=== PATIENT | female | born 1955 | race African-American/Black ===

== ENCOUNTER → 2016-12-18 | Outpatient (CLI) | payer MEDICARE, OTHER ==
[~2016-12-18] MED LIST: ACETAMINOPHEN PO; ALLERGY SHOTS; AZITHROMYC200 MG/5 M PO; BACTRIM DS TABL1 TA1 PO; BICARSIM FORTE125 MG PO; CITRACAL PLUS T1 TAB PO; CLARINEX5 MG PO; CORRECTOL5 MG PO; DESITIN DIAPER113 GM TOP; DULCOLAX10 MG/SUPP RC; E.E.S. 200200 MG/5 M PO; FLONASE 0.05% N16 G1; LACTULOSE10 G/15 ML PO; LOPID600 MG PO; LUBRIFRESH PM OP; MIRALAX255 GM PO; MYLANTA PO; MYTAB PO; NEXIUM PO; PRILOSEC PO; PROTONIX PO; SELSUN BLUE 1%118 ML TP; SENNA8.8 MG/5 M PO; SENNA8.8 MG/51 PO; SIMETHICONE PO; SINGULAIR PO; SODIUM BICARBO650 MG PO; TEARS AGAIN; VITAMIN D1000 UNI1 PO; ZYRTEC PO; [UNRECOGNIZED DRUG - OTHER] PO
== END | disposition home or self-care (01) ==
LOC: CRAD 09:59
DX: J69.8 Pneumonitis due to inhalation of other solids and liquids (principal)
CPT/HCPCS: 74230; 92611; G8996-GN; G8997-GN; G8998-GN

== ENCOUNTER 2016-12-25 10:16 | Emergency (ER) | payer MEDICARE, OTHER ==
--- NOTE | ~2016-12-25 | CT71 ---
[facility] A Service of [facility] RADIOLOGY TEXT RESULTS PATIENT: AMELIA RAMOS LOCATION: [facility] : 53 UNIT #: [id number] AGE: [address]: Gavin Childress MD SEX: F ORDER DR: [id number] [facility] [address] [facility] [place], [place] [address] [id number] E MR#: [id number] Acc #: [id number] NAME: AMELIA RAMOS : 1955 SEX: F STUDY DATE/TIME: 12/25/2016 11:32 UNIT: [facility] ROOM: STUDY DESCRIPTION: CT Head Wo Contrast Attending Physician: Gavin Childress M.D. Ordering Physician: Gavin Childress M.D. Primary Care Physician: Martin Lagos Sr., M.D. MEDICAL IMAGING REPORT This report is preliminary unless electronic signature is present EXAM CT head without contrast HISTORY Witnessed seizure today TECHNIQUE CT of the head was performed without contrast. This CT exam was performed with one or more of the following radiation dose reduction techniques: automatic exposure control, adjustment of mA and/or kV according to patient size, and iterative reconstruction. COMPARISON None available FINDINGS There is no intracranial hemorrhage or acute cortical-based infarction. 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 There is no focal mass lesion or hydrocephalus. There is mild mucosal thickening involving multiple ethmoid air cells. The included orbits are unremarkable. The bone windows are unremarkable. IMPRESSION No acute intracranial abnormality. Dictated by... Zoltan Jean-Baptiste M.D. THIS IS AN ELECTRONICALLY VERIFIED REPORT Zoltan Jean-Baptiste M.D. at 12/25/2016 4:29 PM [facility] A Service [facility] RADIOLOGY TEXT RESULTS PATIENT: AMELIA RAMOS LOCATION: [facility] : 53 UNIT #: [id number] AGE: [address]: Gavin Childress MD SEX: F ORDER DR: Darek TD: 12/25/2016 13:45 JOB #: [id number] MEDICAL IMAGING REPORT Page 1 of 1 COPY
--- NOTE | ~2016-12-25 | CR72 ---
[facility] A Service of [facility] RADIOLOGY TEXT RESULTS PATIENT: AMELIA RAMOS LOCATION: [facility] : 53 UNIT #: [id number] AGE: [address]: Gavin Childress MD SEX: F ORDER DR: [id number] [facility] [address] [facility] [address] [place] [place], [place] [address] [id number] E MR#: [id number] Acc #: [id number] NAME: AMELIA RAMOS. : 1955 SEX: F STUDY DATE/TIME: 12/25/2016 10:11 UNIT: [facility] ROOM: STUDY DESCRIPTION: CR Chest Single View Portable Attending Physician: Gavin Childress M.D. Ordering Physician: Gavin Childress M.D. Primary Care Physician: Martin Lagos Sr., M.D. MEDICAL IMAGING REPORT This report is preliminary unless electronic signature is present EXAM AP portable chest. DATE OF EXAMINATION 12/25/2016 COMPARISON 04/18/2011 HISTORY Possible seizure and syncopal episode today, confusion and shortness of breath. TECHNIQUE An AP view is obtained. FINDINGS The heart size is normal. Lungs show accentuation of the interstitial markings. No acute infiltrates are seen. CONCLUSION Underlying accentuation of the interstitial markings. No acute process identified. Dictated by... John Lambert M.D. THIS IS AN ELECTRONICALLY VERIFIED REPORT John Lambert M.D. at 12/27/2016 7:19 AM TRACY/donna [facility] A Service of [facility] RADIOLOGY TEXT RESULTS PATIENT: AMELIA RAMOS LOCATION: [facility] : 53 UNIT #: [id number] AGE: [address]: Gavin Childress MD SEX: F ORDER DR: TD: 12/25/2016 10:49 JOB #: [id number] MEDICAL IMAGING REPORT Page 1 of 1 COPY
--- NOTE | ~2016-12-25 | EKG ---
PATIENT: AMELIA RAMOS UNIT #: [id number] Ventricular Rate: 70 BPM Atrial Rate: 71 BPM QRS Duration: 78 ms Q-T Interval: 420 ms QTC Calculation(Bezet): 453 ms Calculated R [place]: 1 degrees Calculated T [place]: 51 degrees Diagnosis Line: Normal sinus rhythm Diagnosis Line: Normal ECG Diagnosis Line: When compared with ECG of 18-APR-2011 19:03, Diagnosis Line: Minimal criteria for Anterior infarct are no Diagnosis Line: longer Present Diagnosis Line: Confirmed by CARISA KARIMI MD ([id number]) on 12/25/2016 Diagnosis Line: 10:24:01 PM INTERPRETING MD: SACHI LOPEZ
[2016-12-25 10:17] LABS: BASOPHIL# 0.1 X10e3 (0-0.3); EOSINOPHIL# 0.3 X10e3 (0-0.7); EOSINOPHIL% 6.1 % (0.0-7.0); HEMATOCRIT 38.5 % (35.0-45.0); HEMOGLOBIN 12.4 gm/dL (12.0-16.0); LYMPHOCYTE# 1.6 X10e3 (1.0-3.5); LYMPHOCYTE% 29.3 % (17.0-45.0); MEAN CELL VOLUME 85.9 FL (83-96); MEAN CORPUSCULAR HEMOGLOBIN 27.7 PG (28-34); MEAN CORPUSCULAR HGB CONC 32.3 g/dL (30-36); MEAN PLATELET VOLUME 7.6 FL (6.5-11.5); MONOCYTE# 0.3 X10e3 (0-1.0); MONOCYTE% 5.8 % (3.0-12.0); NEUTROPHIL# 3.2 X10e3 (1.5-7.1); NEUTROPHIL% 57.8 % (40-75); PLATELET COUNT 272 X10e3 (140-420); RED BLOOD COUNT 4.48 X10e (3.90-5.30); RED CELL DISTRIBUTION WIDTH 14.5 % (11.0-15.5); WHITE BLOOD COUNT 5.5 X10e3 (4.0-10.5)
[2016-12-25 10:18] LABS: DIFF IND NO
[2016-12-25 10:43] LABS: URINE SOURCE CLEAN CATCH
[2016-12-25 10:49] LABS: ALBUMIN SERUM 3.7 g/dL (3.5-5.0); ALKALINE PHOSPHATASE 82 U/L (32-92); ALT (SGPT) 11 U/L (10-40); AST (SGOT) 15 U/L (10-42); BILIRUBIN,TOTAL 0.6 mg/dL (0.2-2.0); BLOOD UREA NITROGEN 15 mg/dL (9-23); CALCIUM SERUM 8.9 mg/dL (8.4-10.2); CARBON DIOXIDE 25 mmol/L (22-31); CHLORIDE 107 mmol/L (100-111); GLUCOSE FASTING 85 mg/dL (70-110); POTASSIUM 4.4 mmol/L (3.5-5.1); PROTEIN TOTAL SERUM 7.5 g/dL (6.0-8.3); SODIUM 142 mmol/L (135-145)
[2016-12-25 10:49] LABS: URINE APPEARANCE CLOUDY; URINE BILIRUBIN NEG (NEG); URINE BLOOD NEG (NEG); URINE COLOR YELLOW; URINE GLUCOSE NEG (NEG); URINE KETONE NEG (NEG); URINE LEUKOCYTE ESTERASE NEG (NEG); URINE NITRATE NEG (NEG); URINE PH 8.5 (5-8); URINE PROTEIN NEG (NEG); URINE SPECIFIC GRAVITY 1.013 (1.003-1.035); URINE UROBILINOGEN 0.2 MG/DL (NEG)
[2016-12-25 10:50] LABS: BILIRUBIN, DIRECT <0.1 mg/dL (0.0-0.2); BILIRUBIN,INDIRECT 0.5 mg/dL (0.0-0.9)
[2016-12-25 10:53] LABS: CULTURE INDICATED? NO
[2016-12-25 11:20] LABS: AMPHETAMINE NEG (NEG); BARBITURATES NEG (NEG); BENZODIAZEPINES NEG (NEG); COCAINE NEG (NEG); MARIJUANA NEG (NEG); OPIATES NEG (NEG); TRICYCLIC ANTIDEPRESSANTS NEG (NEG); U METHADONE NEG (NEG)
== END 2016-12-25 14:56 ==
LOC: CED 10:16
PROVIDERS: Emergency Medicine
DX: R56.9 Unspecified convulsions (principal)
CPT/HCPCS: 36415; 51701; 70450; 71010; 80048; 80076; 80307; 81003; 85025; 93005; 96374; 96375; 99284; J1953; J2060

== ENCOUNTER → 2017-04-03 | Outpatient (CLI) | payer MEDICARE, OTHER ==
--- NOTE | ~2017-04-03 | CT57 ---
[facility] A Service of [facility] RADIOLOGY TEXT RESULTS PATIENT: AMELIA RAMOS LOCATION: [facility] : 53 UNIT #: [id number] AGE: [address]: ELI CHILDERS SEX: F ORDER DR: [id number] [facility] [address] [place], [place] [address] [id number] O MR#: [id number] Acc #: [id number] NAME: AMELIA RAMOS : 1955 SEX: F STUDY DATE/TIME: 04/03/2017 10:53 UNIT: [facility] ROOM: STUDY DESCRIPTION: CT Chest Wo Cont Attending Physician: Eli Childers Referring Physician: Eli Childers Primary Care Physician: Martin Lagos Sr., M.D. MEDICAL IMAGING REPORT This report is preliminary unless electronic signature is present EXAM CT Chest without contrast. INDICTIONS Pulmonary nodule seen on chest x-ray from 03/19/17. Followup pulmonary nodules. PROCEDURE Unenhanced CT of the chest comparison to 03/[address] The previous chest radiograph was performed in the physician's office and is not available at this time. The CT exam was performed with one or more of the following radiation dose reduction techniques: automatic exposure control, adjustment of mA and/or kV according to patient size, and iterative reconstruction. FINDINGS 2.1 cm nodule in the right middle lobe, abutting the pericardium. This nodule is in the same location and is dense consolidation on the 2010 study. The majority of dense consolidation has resolved. Otherwise the lungs are clear with no pleural fluid or pneumothorax. No adenopathy. There is mild generalized thickening of the esophagus. No acute findings are seen in the included upper abdomen. Scoliosis. No aggressive appearing bone lesion. The above described right middle lobe nodule does have some internal fat density. Has an HU value of 15.6. IMPRESSION 1. 2.1 cm nodule in the right middle lobe abutting the pericardium. Nonspecific but is an area of previously demonstrated extensive dense opacity on the [address] It also has internal fat density, [facility] RADIOLOGY TEXT RESULTS PATIENT: AMELIA RAMOS LOCATION: [facility] : 53 UNIT #: [id number] AGE: [address]: ELI CHILDERS SEX: F ORDER DR: well as some scattered soft tissue attenuation density which is suggestive of a benign finding. Recommend attention on followup to document persistent stability. 2. No other nodules. 3. Generalized thickening of the esophagus could be seen in the setting of esophagitis. Dictated by... Kamari Bonilla M.D. THIS IS AN ELECTRONICALLY VERIFIED REPORT Kamari Bonilla M.D. at 04/03/2017 5:00 PM MARK/wolf TD: 04/03/2017 15:06 JOB #: [id number] MEDICAL IMAGING REPORT Page 1 of 1 COPY
== END | disposition home or self-care (01) ==
LOC: CCAT 10:26
DX: R91.8 Other nonspecific abnormal finding of lung field (principal); R93.8 Abnormal findings on diagnostic imaging of other specified body structures; R91.1 Solitary pulmonary nodule; K22.8 Other specified diseases of esophagus
CPT/HCPCS: 71250

== ENCOUNTER → 2017-04-25 | Outpatient (CLI) | payer MEDICARE, OTHER | END | disposition home or self-care (01) | LOC: CSSDAY 13:14 | DX: M81.0 Age-related osteoporosis without current pathological fracture (principal) | CPT/HCPCS: 96372; J0897 ==

== ENCOUNTER → 2017-05-23 | Outpatient (CLI) | payer MEDICARE, OTHER ==
--- NOTE | ~2017-05-23 | US17 ---
[facility] A Service of [facility] RADIOLOGY TEXT RESULTS PATIENT: AMELIA RAMOS LOCATION: [facility] : 53 UNIT #: [id number] AGE: [address]: ELI CHILDERS SEX: F ORDER DR: [id number] [place] [id number] [facility]. [place], [place] [address] [id number] O MR#: [id number] Acc #: [id number] NAME: AMELIA RAMOS : 1955 SEX: F STUDY DATE/TIME: 05/23/2017 13:09 UNIT: [facility] ROOM: STUDY DESCRIPTION: US Breast Bilateral Attending Physician: Eli Childers Referring Physician: Eli Childers Ordering Physician: Eli Childers Primary Care Physician: Martin Lagos Sr., M.D. MEDICAL IMAGING REPORT This report is preliminary unless electronic signature is present EXAMINATION Bilateral screening breast ultrasound DATE: 05/23/2017 HISTORY 61-year-old female presenting for routine screening ultrasound. The patient is unable to cooperate for standard screening mammography. COMPARISON Bilateral screening breast ultrasound 09/26/2013 and 11/14/2012. FINDINGS Sonographic interrogation was performed at each breast in a clockwise fashion, and sample images were submitted. Extensive fibrocystic changes are seen within each breast. Some of the cystic foci appear simple, some are mildly complex cystic. A 6 o'clock nodule described within the right breast on the 11/14/2012 ultrasound is not apparent on today's study. Certainly, no focal suspicious solid appearing nodules are identified on either side. IMPRESSION 1. BIRADS 2. Benign findings. Fibrocystic changes within each breast. No sonographic features indicative of malignancy. 2. Routine annual screening recommended in 1 year. Patients over the age of 40 are entered into a reminder system with target due date for the next mammogram. A result letter will also be sent to the patient. BIRADS: 2, benign findings. [facility] A Service of [facility] RADIOLOGY TEXT RESULTS PATIENT: AMELIA RAMOS [id number] 53 UNIT #: [id number] AGE: [address]: ELI CHILDERS SEX: F ORDER DR: Dictated by... Heaven Maldonado M.D. THIS IS AN ELECTRONICALLY VERIFIED REPORT Heaven Maldonado M.D. at 05/24/2017 9:40 AM LEXUS/gokul TD: 05/23/2017 18:20 JOB #: [id number] MEDICAL IMAGING REPORT Page 1 of 1 COPY
== END | disposition home or self-care (01) ==
LOC: CGUS 12:41
DX: N63 Unspecified lump in breast (principal)
CPT/HCPCS: 76641